=== PATIENT | female | born 1990 | race Caucasian/White ===

== ENCOUNTER 2017-08-04 19:35 | Emergency (ER) | payer OTHER ==
[~2017-08-04] VITALS: Ht 172.7 cm; Wt 77.1 kg
[~2017-08-04 19:35] MED LIST: ALBUTEROL0.09 MG/A1 INH; AMOXICILLIN500 MG PO; AMOXIL500 MG PO; AZITHROMYCIN250 MG PO; BACLOFEN10 M1 PO; CIPRO250 M1 PO; COLACE100 MG PO; IBUPROFEN800 M1 PO; MOBIC 15MG15 MG PO; PERCOCET 5-3251 EACH PO; PREDNISONE50 MG PO; PYRIDIUM200 M1 PO; TRAMADOL50 MG PO; VITAFOL-ONE1 SGL PO
[2017-08-04 19:49] VITALS: BP 125/82
[2017-08-04 20:55] LABS: ABSOLUTE BASOPHIL COUNT 0 /CUMM (0.0-0.2); ABSOLUTE EOSINOPHIL COUNT 0.1 /CUMM (0.0-0.7); ABSOLUTE GRANULOCYTE CT 4.9 /CUMM (1.4-6.5); ABSOLUTE LYMPH COUNT 3.1 /CUMM (1.2-3.4); ABSOLUTE MONOCYTE COUNT 0.5 /CUMM (0.10-0.60); BASOPHIL % 0.1 % (0.0-2.0); EOSINOPHIL % 0.9 % (0-5); GRANULOCYTE % 57.3 % (42.2-75.2); HEMATOCRIT 39.1 % (37-47); MEAN CORPUSCULAR HGB CONC 33.2 G/DL (33.0-37.0); MEAN CORPUSCULAR VOLUME 87.2 FL (81.0-99.0); MEAN PLATELET VOLUME 9.8 FL (7.4-10.4); PLATELET COUNT 167 /CUMM (130-400); RBC DISTRIBUTION WIDTH 14.2 % (11.5-14.5); RED BLOOD CELL CT 4.49 /CUMM (4.20-5.40); WHITE BLOOD CELL COUNT 8.6 /CUMM (4.8-10.8)
--- NOTE | 2017-08-04 21:18 | ED GI/GU/ABDOMINAL COMPLAINT ---
History of Present Illness General Chief Complaint: Female Urogenital Problems Stated Complaint: SIB DR LANG FOR EVAL S/P BLEEDING Source: patient Exam Limitations: no limitations Vital Signs & Intake/Output Vital Signs & Intake/Output Vital Signs Date Time Temp Pulse Resp B/P B/P Pulse O2 O2 Flow FiO2 Mean Ox Delivery Rate 08/04 2241 98.2 84 16 100 Room Air 08/04 1949 98.3 102 18 125/82 99 Room Air ED Intake and Output 08/05 0000 08/04 1200 Intake Total Output Total Balance Patient 170 lb Weight Weight Reported by Patient Measurement Method Allergies Coded Allergies: iodine (Intermediate, HIVES 07/17/17) shellfish derived (Intermediate, HIVES 07/17/17) latex (Mild, ITCHING 07/17/17) Reconcile Medications Amoxicillin 500 MG CAP 1 TAB PO TID SINUSITIS Baclofen 10 MG TABLET 1 TAB PO TIDPRN PRN muscle spasm/strain Ciprofloxacin HCl (Cipro) 250 MG TABLET 1 TAB PO BID URINE INFECTION Docusate Sodium (Colace) 100 MG SGL 1 CAP PO DAILY GI (Reported) Ibuprofen 800 MG TABLET 800 MG PO Q6P PRN UTERINE CRAMPING Oxycodone HCl/Acetaminophen (Percocet 5-325 MG Tablet) 1 EACH TABLET 1 TAB PO Q4P PRN PAIN SCALE 4-6 (MODERATE) Phenazopyridine HCl (Pyridium) 200 MG TABLET 1 TAB PO TID DYSUIRA PNV#26/IRON POLY/FA/DHA (Vitafol-One Capsule) 1 SGL SGL 1 CAP PO DAILY (Reported) Triage Note: PT FROM HOME C/O VAGINAL BLEEDING X3 WEEKS. PT STATES SHE IS 8 WEEKS , UNKNOWN DUE DATE PER PT, PTS OBGYN IS DR ALVARADO. PT STATES FOR THE PAST 3 WEEKS SHE HAS HAD A MODERATE AMOUNT OF BLEEDING WITH "OLD BLOOD" PER PT AND NOW IT HAS CHANGED TO "BRIGHT RED BLOOD". PT NOTICED BRIGHT RED BLOOD 1 HR PRIOR AND TOLD TO COME TO ER. PTS VSS, IN NO DISTRESS CURRENTLY. Triage Nurses Notes Reviewed? yes ? Y Is pt currently ? No Onset: Gradual Duration: week(s): Timing: recent history Quality/Severity: cramping, mild Location: suprapubic HPI: 26YO FEMALE 8 weeks presents to ED complaining of bright red vaginal bleeding beginning about 30 minutes prior to arrival. She states she has had dark brown vaginal spotting for the past 3 weeks of her . She has seen her [facility], Dr. Alvarado, twice was told that this was "old blood". Patient states that this was improving and then today she had a episode of bright red vaginal bleeding she noticed on her pad patient called on-call [facility] and was told to come here to the emergency department. Patient reporting mild suprapubic cramping beginning since she has been here in the ER. She also reports intermittent nausea during this . (Cami Rome) Past History Travel History Traveled to [place] past 21 day No Medical History Any Pertinent Medical History? see below for history Neurological: NONE EENT: NONE Cardiovascular: NONE Respiratory: NONE Gastrointestinal: NONE Hepatic: NONE Renal: NONE Musculoskeletal: NONE Psychiatric: anxiety Endocrine: NONE Blood Disorders: NONE Cancer(s): NONE PRODUCT MARKETER/Reproductive: chlamydia, HPV, FIBROCYSTIC BREAST DISEAS ovarian cyst Surgical History Surgical History: D+C, LEEP procedure Psychosocial History What is your primary language Greenlandic Tobacco Use: Current Daily Use Daily Tobacco Use Amount/Type: => 5 Cigarettes daily Family History Hx Contributory? No (Cami Rome) Review of Systems Review of Systems Constitutional: Reports: no symptoms. EENTM: Reports: no symptoms. Respiratory: Reports: no symptoms. Cardiovascular: Reports: no symptoms. GI: Reports: see HPI. Genitourinary: Reports: see HPI. Musculoskeletal: Reports: no symptoms. Skin: Reports: no symptoms. Neurological/Psychological: Reports: no symptoms. Hematologic/Endocrine: Reports: no symptoms. Immunologic/Allergic: Reports: no symptoms. All Other Systems: Reviewed and Negative (Cami Rome) Physical Exam Physical Exam General Appearance: well developed/nourished, no apparent distress, alert, awake Head: atraumatic, normal appearance Eyes: Bilateral: normal appearance. Ears, Nose, Throat, Mouth: hearing grossly normal Neck: normal inspection, supple, full range of motion Respiratory: normal breath sounds, no respiratory distress, lungs clear Cardiovascular: regular rate/rhythm Gastrointestinal: mild suprapubic tenderness Pelvic: brown vaginal discharge, cervix closed Back: normal inspection, normal range of motion Extremities: normal range of motion Neurologic/Psych: awake, alert, oriented x 3 Skin: intact, normal color, warm/dry Core Measures ACS in differential dx? No Sepsis Present: No Sepsis Focused Exam Completed? No (Cami Rome) Progress Differential Diagnosis: intrauterine , threatened AB, UTI/pyelo, anemia Plan of Care: Orders Procedure Date/time Status URINALYSIS 08/04 2034 Complete HUMAN BETA HCG TITRE 08/04 2026 Complete COMPREHENSIVE METABOLIC PANEL 08/04 2026 Complete CBC WITHOUT DIFFERENTIAL 08/04 2026 Complete Laboratory Tests 08/04/172154: Urine Color YEL, Urine Clarity CLEAR, Urine pH 6.5, Ur Specific Sunburst 1.025, Urine Protein NEG, Urine Ketones TRACE H, Urine Nitrite NEG, Urine Bilirubin NEG, Urine Urobilinogen 0.2, Ur Leukocyte Esterase NEG, Ur Microscopic EXAM NOT REQUIRED, Urine Hemoglobin NEG, Urine Glucose NEG 08/04/172046: Anion Gap 13, Estimated GFR > 60, BUN/Creatinine Ratio 13.3, Glucose 77, Calcium 9.1, Total Bilirubin 0.1 L, AST 15, ALT 15, Alkaline Phosphatase 55, Total Protein 6.8, Albumin 3.9, Globulin 2.9, Albumin/Globulin Ratio 1.3, Beta HCG, Quant 71709.0, CBC w Diff NO MAN DIFF REQ, RBC 4.49, MCV 87.2, MCH 29.0, MCHC 33.2, RDW 14.2, MPV 9.8, Gran % 57.3, Lymphocytes % 35.7, Monocytes % 6.0, Eosinophils % 0.9, Basophils % 0.1, Absolute Granulocytes 4.9, Absolute Lymphocytes 3.1, Absolute Monocytes 0.5, Absolute Eosinophils 0.1, Absolute Basophils 0 Unable to obtain ultrasound at this time in the ED. Patient has previous confirmed IUP from 07/16/17. Her blood type is O+. Labs are within normal limits today, hCG titer WNL. Patient sitting in stretcher in no acute distress vital signs are stable, she is nontoxic appearing. It was recommended patient call her [facility] tomorrow morning so she could set up an office appointment and ultrasound. Patient was given an outpatient ultrasound slip if her [facility] is not able to see her in the office. The patient agrees with the plan of care. The patient was discussed with Dr. Luz who agrees with the plan. Initial ED EKG: none ([place] Cami RAMIREZ) Departure Departure Disposition: HOME OR SELF CARE Condition: Stable Clinical Impression Primary Impression: Vaginal bleeding affecting early Referrals: Patient Has No Primary Care Dr (PCP/Family) Additional Instructions: Call your OBGYN tomorrow morning to make an office appointment for the next 1-2 days. She may recommend ultrasound in her office. You may also Return tomorrow for ultrasound to assess , bring outpatient imaging slip. Return with any increasing bleeding or abdominal pain. Please note that there might be incidental findings in your evaluation that are unrelated to the current emergency department visit. Please notify your primary care doctor about this emergency department visit in order to obtain and review all of the testing performed so that these incidental findings can be monitored as needed. If you had an x-ray performed, please understand that some fractures may not be seen on the initial set of x-rays. If your symptoms persist you might need a repeat set of x-rays to check for such a fracture. If you had a laceration evaluated, please understand that foreign bodies such as glass or wood may not be visible to the naked eye or on plain x-rays. If the wound becomes red, swollen, increasingly more painful or if there is any drainage from the wound, please have it reevaluated by a physician for the possibility of a retained foreign body. If you're unable to follow up as outlined in the discharge instructions please return to the emergency department. Thank you for choosing the [facility] Emergency Department for your care. It was a pleasure to serve you today. Departure Forms: Customer Survey General Discharge Information (Cami Rome) PA/UROGYNAECOLOGIST Co-Sign Statement Statement: ED Attending supervision documentation- [] I saw and evaluated the patient. I have also reviewed all the pertinent lab results and diagnostic results. I agree with the findings and the plan of care as documented in the PA's/UROGYNAECOLOGIST's documentation. [x] I have reviewed the ED Record and agree with the PA's/UROGYNAECOLOGIST's documentation. [] Additions or exceptions (if any) to the PAs/UROGYNAECOLOGIST's note and plan are summarized below: [] (Natty WILLOUGHBY,Rinku Daigle)
== END 2017-08-04 22:42 ==
LOC: ERH 19:35
PROVIDERS: Pediatrics
DX: O20.9 Hemorrhage in early pregnancy, unspecified (principal); Z3A.08 8 weeks gestation of pregnancy
CPT/HCPCS: 81003